=== PATIENT | female | born 1930 | race Caucasian/White ===

== ENCOUNTER 2017-11-18 21:50 | Inpatient (IN) | payer OTHER, MEDICAID ==
[2017-11-18] MEDS ORDERED: Haloperidol Lactate 5 mg/mL 1mL Vial IM STA ×2 (21:54→22:04)
[2017-11-18] MEDS ORDERED: Haloperidol Lactate 5 mg/mL 1mL Vial ONE ×2 (21:56→22:05)
[2017-11-18 22:35] LABS: % BASOPHILS 1.6 % (0.0-2.0); % EOSINOPHILS 3.7 % (0.0-5.0); % LYMPHOCYTES 16.6 % (20.0-50.0); % MONOCYTES 10.6 % (2.0-10.0); % NEUTROPHILS 67.5 % (40.0-80.0); BASOPHILE ABSOLUTE 0.2 Th/cumm (0-0.2); EOSINOPHILE ABSOLUTE 0.4 Th/cmm (0.1-0.4); HEMATOCRIT 36.3 % (41.0-60); HEMOGLOBIN 12.4 gm/dL (12-16); LYMPHOCYTE ABSOLUTE 1.9 Th/cmm (1.5-3.0); MEAN CELL VOLUME 94.2 fl (81-100); MEAN CORPUSCULAR HEMOGLOBIN 32.1 pg (27.0-31.0); MEAN PLATELET VOLUME 6.7 fl; MONOCYTE ABSOLUTE 1.2 Th/cmm (0.3-1.0); NEUTROPHILE ABSOLUTE 7.7 Th/cmm (1.8-8.0); PLATELET COUNT 377 Th/cmm (150-400); RED BLOOD COUNT 3.86 Mil/cmm (3.80-5.20); RED CELL DISTRIBUTION WIDTH 13.1 % (11.5-20.0); WHITE BLOOD COUNT 11.4 Th/cmm (4.8-10.8)
[2017-11-18 22:56] LABS: ALB/GLOB RATIO 1.5 (1.0-1.8); ALBUMIN 3.8 gm/dL (3.7-5.3); ALKALINE PHOSPHATASE 60 U/L (34-104); ANION GAP 12.7 (7.0-16.0); BILIRUBIN,TOTAL 0.7 mg/dL (0.3-1.0); BUN - UREA NITROGEN 15 mg/dL (7-25); CARBON DIOXIDE 23.4 mEq/L (21.0-31.0); CHLORIDE 104 mEq/L (98-107); CREATININE - SERUM 0.7 mg/dL (0.6-1.2); GLUCOSE 108 mg/dL (70-105); POTASSIUM SERUM 4.1 mEq/L (3.5-5.1); SGOT 18 U/L (13-39); SGPT/ALT 12 U/L (7-52); SODIUM SERUM 136 mEq/L (136-145); TOTAL PROTEIN,SERUM 6.4 gm/dL (6.0-8.3)
--- NOTE | 2017-11-18 23:28 | ED Physician Chart ---
ED Chief Complaint/HPI - Patient Information Date Seen:: 11/18/17 Time Seen:: 22:00 Chief Complaint:: COMBATIVE AND CONFUSED History of Present Illness:: THIS IS AN 87 YO FEMALE WHO IS COMBATIVE, HITTING THE STAFF AND IS UNCOOPERATIVE SENT HERE FOR A PSYCHO EVALUATION. SHE IS CHRONICALLY WITH PSYCHOSIS, WEAKNESS AND COPD. Allergies:: Allergies Allergy/AdvReac Type Severity Reaction Status Date / Time lorazepam [From Ativan] Allergy Verified 11/18/17 22:12 Sulfa (Sulfonamide Allergy Verified 11/18/17 22:12 Antibiotics) Vitals:: Vital Signs - 8 hr 11/18/17 21:55 Temp 97.6 F HR 77 RR 18 BP 152/76 O2 Sat % 95 Historian:: Family Member, Medical Records Review:: Nurse's Note Reviewed ED Review of Systems - Review of Systems General/Constitutional: No fever, No chills, No weight loss, No weakness, No diaphoresis, No edema, No loss of appetite, Other (THIS PATIENT IS UNABLE TO GIVE A REVIEW OF SYSTEMS) Skin: No skin lesions, No rash, No bruising Head: No headache, No light-headedness Eyes: No loss of vision, No pain, No diplopia ENT: No earache, No nasal drainage, No sore throat, No tinnitus Neck: No neck pain, No swelling, No thyromegaly, No stiffness, No mass noted Cardio Vascular: No chest pain, No palpitations, No PND, No orthopnea, No edema Pulmonary: No SOB, No cough, No sputum, No wheezing GI: No nausea, No vomiting, No diarrhea, No pain, No melena, No hematochezia, No constipation, No hematemesis G/U: No dysuria, No frequency, No hematuria Musculoskeletal: No bone or joint pain, No back pain, No muscle pain Endocrine: No polyuria, No polydipsia Psychiatric: No prior psych history, No depression, No anxiety, No suicidal ideation Hematopoietic: No bruising, No lymphadenopathy Allergic/Immuno: No urticaria, No angioedema Neurological: No syncope, No focal symptoms, No weakness, No paresthesia, No headache, No seizure, No dizziness, No confusion, No vertigo ED Past Medical History - Past Medical History Obtainable: Yes Past Medical History: CAD, Dyslipidemia, Arthritis, Dementia Family History: None Social History: Non Smoker, No Alcohol, No Drug Use, Care Facility Surgical History: other (DISLOCATION OF THE LEFT HIP) ED Physical Exam - Physical Examination General/Constitutional: Awake, Well-developed, well-nourished, Alert, No distress, GCS 15, Non-toxic appearing, Ambulatory Other Gen/Cons comments:: COMBATIVE AND UNABLE TO COOPERATE Head: Atraumatic Eyes: Lids, conjuctiva normal, PERRL, EOMI Skin: Nl inspection, No rash, No skin lesions, No ecchymosis, Well hydrated, No lymphadenopathy ENMT: External ears, nose nl, Nasal exam nl, Lips, teeth, gums nl Neck: Nontender, Full ROM w/o pain, No JVD, No nuchal rigidity, No bruit, No mass, No stridor Respiratory: Nl effort/Exclusion, Clear to Auscultation, No Wheeze/Rhonchi/Rales Cardio Vascular: RRR, No murmur, gallop, rubs, NL S1 S2 GI: No tenderness/rebounding/guarding, No organomegaly, No hernia, Normal BS's, Nondistended, No mass/bruits, No McBurney tenderness : No CVA tenderness Extremities: No tenderness or effusion, Full ROM, normal strength in all extremities, No edema, Normal digits & nails Neuro/Psych: Alert/oriented, DTR's symmetric, Normal sensory exam, Normal motor strength, Judgement/insight normal, Mood normal, Normal gait, No focal deficits Misc: Normal back, No paraspinal tenderness ED Labs/Radiology/EKG Results - Lab Results Results: Laboratory Tests 11/18/17 11/18/17 11/18/17 22:27 22:27 22:27 WBC 11.4 H RBC 3.86 Hgb 12.4 Hct 36.3 L MCV 94.2 MCH 32.1 H MCHC Differential 34.0 RDW 13.1 Plt Count 377 MPV 6.7 Neutrophils % 67.5 Lymphocytes % 16.6 L Monocytes % 10.6 H Eosinophils % 3.7 Basophils % 1.6 Sodium 136 Potassium 4.1 Chloride 104 Carbon Dioxide 23.4 Anion Gap 12.7 BUN 15 Creatinine 0.7 Est GFR ( Amer) TNP Est GFR (Non-Af Amer) TNP BUN/Creatinine Ratio 21.4 Glucose 108 H Calcium 10.0 Total Bilirubin 0.7 AST 18 ALT 12 Alkaline Phosphatase 60 Troponin I < 0.01 L Total Protein 6.4 Albumin 3.8 Globulin 2.6 Albumin/Globulin Ratio 1.5 - Radiology Results Results: CHEST X-RAY = NAD - EKG Interpretations EKG Time:: 01:17 Rate & Rhythm: RATE=72, NSR Covert: RIGHT AXIS ED Assessment - Assessment General Assessment: SEVERE PSYCHOSIS ED Septic Shock - . Is Septic Shock (SBP<90, OR Lactate>4 mmol\L) present?: No - <6hrs of presentation: Vital Signs: Vital Signs - 8 hr 11/18/17 21:55 Temp 97.6 F HR 77 RR 18 BP 152/76 O2 Sat % 95 ED Reassessment (Disposition) - Reassessment Reassessment Condition:: Unchanged - Diagnosis Diagnosis:: PSYCHOSIS ED Discharge Plan - Patient Disposition Admit/Discharge/Transfer: TRANSFER TO ACUTE HOSP Additional Instructions: THIS PATIENT WILL BE CARED FOR BY DR DALY STARTING AT 0700 HRS AND AWAITS A BED AT A [facility]
--- NOTE | 2017-11-19 09:35 | Diagnostic Imaging Report ---
Chest x-ray single view History: Chest pain Comparison: None The heart size is normal. No focal pulmonary parenchymal processes. No hilar or mediastinal abnormalities. Aortic arch calcified. Degenerative changes shoulder joint appreciated Impression: No acute abnormalities
[2017-11-20] MEDS ORDERED: APAP/Codeine 300 mg/30 mg Tab PO STA (13:17)
[2017-11-20] MEDS ORDERED: APAP/Codeine 300 mg/30 mg Tab ONE (13:25)
[2017-11-20 15:49] LABS: URINE MICROSCOPIC INDICATED? YES; URINE SOURCE CLEAN C
[2017-11-20 16:08] LABS: URINE BILIRUBIN SMALL (NEGATIVE); URINE BLOOD NEGATIVE (NEGATIVE); URINE GLUCOSE (UA) NEGATIVE (NEGATIVE); URINE KETONE 15 mg/dL (NEGATIVE); URINE NITRATE NEGATIVE (NEGATIVE); URINE PH 6.5 (4.6 - 8.0); URINE PROTEIN NEGATIVE (NEGATIVE); URINE UROBILINOGEN 0.2 E.U./dL (0.2 - 1.0)
[2017-11-20 16:14] LABS: URINE CLARITY CLEAR (CLEAR); URINE COLOR YELLOW; URINE LEUKOCYTE ESTERASE TRACE (NEGATIVE)
[2017-11-20 16:16] LABS: URINE BACTERIA NONE SEEN /hpf (NONE SEEN); URINE EPITHELIAL CELLS FEW /lpf (FEW); URINE RBC 0-2 /hpf (0-5)
[2017-11-21] MEDS ORDERED: APAP/Codeine 300 mg/30 mg Tab PO STA ×2 (09:17→15:28)
[2017-11-21] MEDS ORDERED: APAP/Codeine 300 mg/30 mg Tab ONE ×2 (09:21→15:47)
--- NOTE | 2017-11-21 18:18 | Psychosocial Evaluation ---
DATE OF SERVICE: 11/21/2017 REASON FOR CONSULTATION: Psych eval. HISTORY OF PRESENT ILLNESS: An 87-year-old female, combative, hitting the staff, uncooperative, came in on a hold for danger to self, danger to others. Daughter is at the bedside. The patient __knows__ her name. She does not know where she is. She is not quite sure about the year. She does not know the day of the week. She does know the month. PAST PSYCHIATRIC HISTORY: Dementia. FAMILY HISTORY: Noncontributory. SOCIAL HISTORY: The patient is residing in [facility], had been at [facility] for rehabilitation. Currently . She has two children, one of them is ; the other one is here, daughter. The patient is smoking cigarettes still. No drugs, no alcohol. MEDICATIONS: Noted. PAST MEDICAL HISTORY: Noted. MENTAL STATUS EXAMINATION: Stated age. Fair eye contact. Speech is within normal limits. Poorly oriented, confused, and disoriented. No overt SI or HI. No overt psychotic symptoms. Poor insight, poor judgment, and poor impulse control. The patient becomes unruly at one point, daughter has to calm her down. PROVISIONAL DIAGNOSIS: 1. Dementia. 2. Dementia with behavioral disturbances. 3. Psychosis, unspecified. 4. Mood, unspecified. 5. Anxiety, unspecified. MEDICAL: Please see full H and P. RECOMMENDATIONS AND PLAN: No confirmation of placement at this time. The patient currently cannot care for herself. I will initiate a 14-day hold. Discussed with daughter and staff. [facility]# [id number] [facility]
[2017-11-21 20:11] VITALS: BP 158/91
[2017-11-21] MEDS ORDERED: guaiFENesin 200 MG/10 ML UDC PO PRN (22:38)
[2017-11-21] MEDS ORDERED: Fleet Enema 135 mL RC PRN (22:38)
[2017-11-21] MEDS ORDERED: Magnesium Hydroxide (MOM) 30 mL UDC PO PRN (22:38)
[2017-11-21] MEDS ORDERED: Albuterol Nebulizer 2.5mg/3mL HHN PRN (22:38)
[2017-11-21] MEDS ORDERED: Polyvinyl Alcohol Ophth Soln 15 mL Bottle EACH EYE PRN (22:55)
[2017-11-22] MEDS: APAP/Codeine 300 mg/30 mg Tab PO PRN ×3 (05:40→18:18)
[2017-11-22] MEDS: Potassium Chloride 10 mEq ER Tab PO SCH (08:59)
[2017-11-22] MEDS: Aspirin 81mg Chewable Tab PO SCH (08:59)
[2017-11-22] MEDS: Multivitamin w/ Minerals Tab PO SCH (08:59)
[2017-11-22] MEDS ORDERED: Non-Formulary Item 1 EA (Fluticasone/Salmeterol [Advair 100-50 Diskus] 1 PUFF) IH SCH (09:00)
[2017-11-22] MEDS: Lidocaine 5% Patch TD SCH (09:15)
[2017-11-22] MEDS: Polyvinyl Alcohol Ophth Soln 15 mL Bottle EACH EYE SCH ×4 (09:15→21:47)
--- NOTE | 2017-11-22 09:51 | History and Physical ---
History of Present Illness - HPI Chief Complaint: Increased in agitation HPI: This is a permanent resident of a intermediate. She was send to ER due to increased in agitation. Vital Signs: Last Vital Signs Temp 97.0 F 11/22/17 05:51 Pulse 85 11/22/17 08:59 Resp 20 11/22/17 05:51 BP 126/72 11/22/17 08:59 Pulse Ox 94 11/22/17 05:51 Past Medical History Cardiovascular: Report: CAD, HTN Pulmonary: Report: COPD [employer]: Report: Dementia GI: Report: No Pertinent Hx Psych: Report: Psychosis Musculoskeletal: Report: Weakness Rheumatologic: Report: No pertinent Hx Infectious Disease: Report: No Pertinent Hx Renal/: Report: No Pertinent Hx Endocrine: Report: Other (Dyslipemia) Dermatology: Report: No Pertinent Hx - Past Surgical History Past Surgical History: No pertinent Hx, Other (Dislocation of left hip repair) Family Medical History - Family Member Daughter Ethnicity: Non- Living Status: Still Living Social History Smoke: No Alcohol: None Drugs: None Lives: Custodial Domestic Violence: Negative - Medications Home Medications: Home Medication Medication Instructions Recorded Type Acetaminophen 650 mg PO Q4HR PRN 11/18/17 History Acetaminophen [Acetaminophen Extra 500 mg PO Q12HR PRN MDD 3000 mg 11/18/17 History Strength] Acetaminophen with Codeine 1 each PO Q6HR PRN 11/18/17 History [Acetaminophen-Cod #4 Tablet] Acetaminophen with Codeine 1 tab PO DAILY PRN 11/18/17 History [Acetaminophen-Cod #4 Tablet] Albuterol Nebulizer 2.5mg/3mL 2.5 mg IH Q4HR PRN 11/18/17 History [Albuterol Neb UD*] Aspirin 81 mg PO DAILY 11/18/17 History Bisacodyl [Dulcolax 10 Mg Supp] 10 mg RC DAILY PRN 11/18/17 History Buspirone HCl [Buspirone HCl*] 15 mg PO TID 11/18/17 History Carboxymethylcellulose Sodium 1 drop EACH EYE DAILY PRN 11/18/17 History [Refresh Liquigel 30 ml] Carboxymethylcellulose Sodium 1 drop EACH EYE QID 11/18/17 History [Refresh Tears] Docusate Sodium [Colace] 100 mg PO BID 11/18/17 History Duloxetine HCl 40 mg PO DAILY 11/18/17 History Famotidine [Pepcid*] 40 mg PO DAILY 11/18/17 History Fleet Enema [Fleet Enema] 135 ml RC DAILY PRN 11/18/17 History Fluticasone/Salmeterol [Advair 1 puff IH DAILY 11/18/17 History 100-50 Diskus] Guaifenesin [Adult Tussin Chest 100 mg PO Q4HR PRN 11/18/17 History Congestion] Latanoprost 0.005% Ophth Soln 1 drop OP DAILY 11/18/17 History [Xalatan 0.005% Ophth Soln] Lidocaine 5% Patch [Lidoderm 5% 1 patch TP DAILY 11/18/17 History Patch] Lovastatin 20 mg PO HS 11/18/17 History Magnesium Hydroxide [Milk of 30 ml PO DAILY PRN 11/18/17 History Magnesia] Metoprolol Tartrate [Lopressor] 25 mg PO BID 11/18/17 History Multivit-Min/Iron Fum/Folic AC 1 tab PO DAILY 11/18/17 History [Nature's Blend Multi Vitamin and Minerals] Potassium Chloride 10 meq PO DAILY 11/18/17 History Sennosides A and B [Senna] 2 tab PO DAILY 11/18/17 History - Allergies Allergies/Adverse Reactions: Allergies Allergy/AdvReac Type Severity Reaction Status Date / Time lorazepam [From Ativan] Allergy Verified 11/18/17 22:12 Sulfa (Sulfonamide Allergy Verified 11/18/17 22:12 Antibiotics) Review of Systems - Review of Systems Constitutional: Report: No Significant Eyes: Report: No Significant ENT: Report: No Significant Respiratory: Report: No Significant Cardiovascular: Report: No Significant Gastrointestinal: Report: No Significant Genitourinary: Report: No Significant Musculoskeletal: Report: No Significant Skin: Report: No Significant Neurological: Report: Weakness, Confusion Physical Exam - Physical Exam HEENT: Report: Ears Nose Throat within normal limits Neck: Report: Within normal limits Cardiovascular Systems: Report: Regular, Rate and Rhythm Respiratory: Report: Breath Sounds are within normal limits Abdomen: Report: Non-tender to palpation Back: Report: Inspection of back is within normal limits. Extremities: Report: Non-tender to palpation. Skin: Report: Color of skin is within normal limits Neuro/Psych: Report: Disoriented to name time or place - Assessment Assessment: patient is awake, alert, confused, agitated at moment. Dx: Increased in agitation, Psychosis, Dementia, HTN, CAD, COPD Dyslipemia. - Plan Plan: Patient is follow by Psychiatry, she is continue with SNF meds. Will continue to monitor.
--- NOTE | 2017-11-22 16:20 | Progress Notes ---
DATE: 11/22/2017 SUBJECTIVE: The patient was seen yesterday for a psych eval. She was combative, hitting, uncooperative. On [id number], the patient remains disoriented, does not know where she is, does not know why she is here, telling me that my questions are not important and refusing to answer some questions. The patient trying to get up, unruly, difficulty with directions, sleeping fairly well. ASSESSMENT: The patient remains symptomatic disoriented, confused, unruly, unable to go back to [facility]. We will need to find alternative placement. Daughter were involved. Continue Cymbalta. We will consider adding Namenda to her regimen. JOB# [id number]
[2017-11-23] MEDS: Acetaminophen 500 MG TAB PO PRN (04:58)
[2017-11-23] MEDS: Aspirin 81mg Chewable Tab PO SCH (09:54)
[2017-11-23] MEDS: Multivitamin w/ Minerals Tab PO SCH (09:54)
[2017-11-23] MEDS: Potassium Chloride 10 mEq ER Tab PO SCH (09:54)
[2017-11-23 11:02] LABS: CHOLESTEROL 149 mg/dL (<200); HDL -HIGH DENSITY LIPOPROTEIN 44 mg/dL (23-92); TRIGLYCERIDES 106 mg/dL (<150)
--- NOTE | 2017-11-23 13:38 | General Progress Note ---
Subjective - Review of Systems Service Date: 11/23/17 Subjective: Incoherent Objective - Results Result Diagrams: 11/18/17 22:11/18/17 22: Recent Labs: Laboratory Last Values WBC 11.4 Th/cmm (4.8-10.8) H 11/18/17 22: RBC 3.86 Mil/cmm (3.80-5.20) 11/18/17 22: Hgb 12.4 gm/dL (12-16) 11/18/17: Hct 36.3 % (41.0-60) L 11/18/17: MCV 94.2 fl (81-100) 11/18/17 22: MCH 32.1 pg (27.0-31.0) H 11/18/17: MCHC Differential 34.0 pg (28.0-36.0) 11/18/17: RDW 13.1 % (11.5-20.0) 11/18/17: Plt Count 377 Th/cmm (150-400) 11/18/17 22: MPV 6.7 fl 11/18/17 22: Neutrophils % 67.5 % (40.0-80.0) 11/18/17: Lymphocytes % 16.6 % (20.0-50.0) L 11/18/17: Monocytes % 10.6 % (2.0-10.0) H 11/18/17: Eosinophils % 3.7 % (0.0-5.0) 11/18/17: Basophils % 1.6 % (0.0-2.0) 11/18/17: Sodium 136 mEq/L (136-145) 11/18/17: Potassium 4.1 mEq/L (3.5-5.1) 11/18/17: Chloride 104 mEq/L (98-107) 11/18/17: Carbon Dioxide 23.4 mEq/L (21.0-31.0) 11/18/17: Anion Gap 12.7 (7.0-16.0) 11/18/17: BUN 15 mg/dL (7-25) 11/18/17: Creatinine 0.7 mg/dL (0.6-1.2) 11/18/17 22: Est GFR ( Amer) TNP 11/18/17 22: Est GFR (Non-Af Amer) TNP 11/18/17 22: BUN/Creatinine Ratio 21.4 11/18/17 22: Glucose 108 mg/dL (70-105) H 11/18/17 22: Calcium 10.0 mg/dL (8.6-10.3) 11/18/17: Total Bilirubin 0.7 mg/dL (0.3-1.0) 11/18/17: AST 18 U/L (13-39) 11/18/17: ALT 12 U/L (7-52) 11/18/17: Alkaline Phosphatase 60 U/L (34-104) 11/18/17: Troponin I < 0.01 ng/mL (0.01-0.05) L 11/18/17: Total Protein 6.4 gm/dL (6.0-8.3) 11/18/17: Albumin 3.8 gm/dL (3.7-5.3) 11/18/17: Globulin 2.6 gm/dL 11/18/17: Albumin/Globulin Ratio 1.5 (1.0-1.8) 11/18/17 22: Triglycerides 106 mg/dL (<150) 11/23/17 10:30 Cholesterol 149 mg/dL (<200) 11/23/17 10:30 LDL Cholesterol Direct 94 mg/dL (75-193) 11/23/17 10:30 HDL Cholesterol 44 mg/dL (23-92) 11/23/17 10:30 TSH 2.17 uIU/ml (0.34-5.60) 11/18/17 22: Urine Source CLEAN C 11/20/17 15:00 Urine Color YELLOW 11/20/17 15:00 Urine Clarity CLEAR (CLEAR) 11/20/17 15:00 Urine pH 6.5 (4.6 - 8.0) 11/20/17 15:00 Ur Specific [place] 1.020 (1.005-1.030) 11/20/17 15:00 Urine Protein NEGATIVE mg/dL (NEGATIVE) 11/20/17 15:00 Urine Glucose (UA) NEGATIVE mg/dL (NEGATIVE) 11/20/17 15:00 Urine Ketones 15 mg/dL (NEGATIVE) H 11/20/17 15:00 Urine Blood NEGATIVE (NEGATIVE) 11/20/17 15:00 Urine Nitrate NEGATIVE (NEGATIVE) 11/20/17 15:00 Urine Bilirubin SMALL (NEGATIVE) H 11/20/17 15:00 Urine Urobilinogen 0.2 E.U./dL (0.2 - 1.0) 11/20/17 15:00 Ur Leukocyte Esterase TRACE (NEGATIVE) H 11/20/17 15:00 Urine RBC 0-2 /hpf (0-5) 11/20/17 15:00 Urine WBC 2-5 /hpf (0-5) 11/20/17 15:00 Ur Epithelial Cells FEW /lpf (FEW) 11/20/17 15:00 Urine Bacteria NONE SEEN /hpf (NONE SEEN) 11/20/17 15:00 - Physical Exam Vitals and I&O: Vital Signs Temp 98.3 F 11/23/17 06:08 Pulse 75 11/23/17 09:54 Resp 18 11/23/17 06:08 BP 147/72 11/23/17 09:54 Pulse Ox 95 11/23/17 06:08 Intake & Output 11/22/17 11/23/17 11/23/17 18:59 06:59 18:59 Intake Total 900 360 Balance 900 360 Intake: Oral 900 360 Other: # Voids 4 2 # Bowel Movements 1 0 Active Medications: Current Medications Acetaminophen (Tylenol) 650 mg PO Q4HR PRN PRN Reason: TEMP >100F Stop: 01/20/18 22:37 Acetaminophen (Tylenol Extra Strength) 500 mg PO Q12HR PRN PRN Reason: Pain (Mild) Stop: 01/20/18 22:37 Last Admin: 11/23/17 04:58 Dose: 500 mg Acetaminophen/Codeine Phosphate (Tylenol W/Codeine #3) 1 tab PO Q6H PRN PRN Reason: Pain (Moderate) Stop: 01/20/18 22:53 Last Admin: 11/22/17 18:18 Dose: 1 tab Albuterol Sulfate (Albuterol 2.5mg/3ml Neb Ud) 2.5 mg HHN Q4HR PRN PRN Reason: Shortness of Breath or Wheeze Stop: 01/20/18 22:37 Artificial Tears (Artificial Tears Ophth Soln) 1 drop EACH EYE QID RADHA Stop: 01/21/18 08:59 Last Admin: 11/22/17 21:47 Dose: 1 drop Artificial Tears (Artificial Tears Ophth Soln) 1 drop EACH EYE DAILY PRN PRN Reason: Dry Eye Stop: 01/20/18 22:54 Aspirin (Aspirin Chewable) 81 mg PO DAILY RADHA Stop: 01/21/18 08:59 Last Admin: 11/23/17 09:54 Dose: 81 mg Bisacodyl (Dulcolax 10 Mg Supp) 10 mg RC DAILY PRN PRN Reason: Constipation Stop: 01/20/18 22:37 Buspirone HCl (Buspar) 15 mg PO TID [facility] Stop: 01/21/18 08:59 Last Admin: 11/23/17 09:54 Dose: 15 mg Docusate Sodium (Colace) 100 mg PO BID [facility] Stop: 01/21/18 08:59 Last Admin: 11/23/17 09:56 Dose: 100 mg Duloxetine HCl (Cymbalta) 40 mg PO DAILY [facility] Stop: 01/21/18 08:59 Famotidine (Pepcid) 40 mg PO DAILY [facility] Stop: 01/21/18 08:59 Last Admin: 11/22/17 08:57 Dose: 40 mg Guaifenesin (Robitussin) 100 mg PO Q4HR PRN PRN Reason: Cough Stop: 01/20/18 22:37 Latanoprost (Xalatan 0.005% Ophth Soln) 1 drop EACH EYE HS [facility] Stop: 01/21/18 20:59 Last Admin: 11/22/17 21:47 Dose: 1 drop Lidocaine (Lidoderm 5% Patch) 1 patch TD DAILY RADHA Stop: 01/21/18 08:59 Last Admin: 11/22/17 09:15 Dose: 1 patch Magnesium Hydroxide (Milk Of Magnesia) 30 ml PO DAILY PRN PRN Reason: Constipation Stop: 01/20/18 22:37 Memantine (Namenda) 5 mg PO DAILY RADHA Stop: 01/22/18 08:59 Last Admin: 11/23/17 09:54 Dose: 5 mg Metoprolol Tartrate (Lopressor) 25 mg PO BID RADHA Stop: 01/21/18 08:59 Last Admin: 11/23/17 09:54 Dose: 25 mg Miscellaneous (Fluticasone/Salmeterol [Advair 100-50 Diskus]) 1 puff IH DAILY [facility] Stop: 01/21/18 08:59 Potassium Chloride (Klor-Con) 10 meq PO DAILY RADHA Stop: 01/21/18 08:59 Last Admin: 11/23/17 09:54 Dose: 10 meq Senna (Senna) 17.2 mg PO DAILY RADHA Stop: 01/21/18 08:59 Last Admin: 11/23/17 09:54 Dose: 17.2 mg Simvastatin (Zocor) 10 mg PO HS [facility] Stop: 01/21/18 20:59 Last Admin: 11/22/17 21:47 Dose: 10 mg Sodium Phosphate (Fleet Enema) 135 ml RC DAILY PRN PRN Reason: Constipation Stop: 01/20/18 22:37 General: Alert, Other (Confused) HEENT: Atraumatic, PERRLA Neck: Supple Cardiovascular: Regular rate Lungs: Clear to auscultation Abdomen: Bowel sounds, Soft Extremities: Other (No edema) Neurological: Other (Non ambulatory) Skin: Other (Warm and dry) Psych/Mental Status: Other (Confused) Assessment/Plan - Assessment Assessment: patient is awake, alert, confused, agitated at moment. Dx: Increased in agitation, Psychosis, Dementia, HTN, CAD, COPD Dyslipemia. - Plan Plan: Patient is follow by Psychiatry, she is continue with SNF meds. Will continue to monitor.
[2017-11-23] MEDS: Lidocaine 5% Patch TD SCH (16:19)
[2017-11-23] MEDS: Polyvinyl Alcohol Ophth Soln 15 mL Bottle EACH EYE SCH ×3 (16:21→20:48)
--- NOTE | 2017-11-23 18:15 | Progress Notes ---
DATE: 11/23/2017 The patient seen, chart reviewed, discussed with staff. The patient was seen today, 11/23/2017. The patient seems somewhat calmer, but still remains pretty impulsive, unpredictable, easily irritable, easily agitated, very confused. On exam, she is sleeping, however she is arousable but does not want to talk to me, disoriented on exam. Medications were noted. ASSESSMENT: The patient is calm at this time, but staff noting she remains easily irritable, easily triggered, not safe for a lower level of care given her ongoing behaviors, still highly impulsive. PLAN: We will continue to monitor. We will continue to adjust and titrate medications. [facility]# [id number]
[2017-11-23] MEDS: APAP/Codeine 300 mg/30 mg Tab PO PRN (18:46)
--- NOTE | 2017-11-24 09:02 | General Progress Note ---
Subjective - Review of Systems Service Date: 11/24/17 Subjective: Incoherent Objective - Results Result Diagrams: 11/18/17 22:11/18/17 22: Recent Labs: Laboratory Last Values WBC 11.4 Th/cmm (4.8-10.8) H 11/18/17 22: RBC 3.86 Mil/cmm (3.80-5.20) 11/18/17 22: Hgb 12.4 gm/dL (12-16) 11/18/17: Hct 36.3 % (41.0-60) L 11/18/17: MCV 94.2 fl (81-100) 11/18/17: MCH 32.1 pg (27.0-31.0) H 11/18/17: MCHC Differential 34.0 pg (28.0-36.0) 11/18/17: RDW 13.1 % (11.5-20.0) 11/18/17: Plt Count 377 Th/cmm (150-400) 11/18/17 22: MPV 6.7 fl 11/18/17: Neutrophils % 67.5 % (40.0-80.0) 11/18/17: Lymphocytes % 16.6 % (20.0-50.0) L 11/18/17: Monocytes % 10.6 % (2.0-10.0) H 11/18/17: Eosinophils % 3.7 % (0.0-5.0) 11/18/17: Basophils % 1.6 % (0.0-2.0) 11/18/17: Sodium 136 mEq/L (136-145) 11/18/17: Potassium 4.1 mEq/L (3.5-5.1) 11/18/17: Chloride 104 mEq/L (98-107) 11/18/17: Carbon Dioxide 23.4 mEq/L (21.0-31.0) 11/18/17: Anion Gap 12.7 (7.0-16.0) 11/18/17: BUN 15 mg/dL (7-25) 11/18/17: Creatinine 0.7 mg/dL (0.6-1.2) 11/18/17 22: Est GFR ( Amer) TNP 11/18/17 22: Est GFR (Non-Af Amer) TNP 11/18/17 22: BUN/Creatinine Ratio 21.4 11/18/17 22: Glucose 108 mg/dL (70-105) H 11/18/17 22: Calcium 10.0 mg/dL (8.6-10.3) 11/18/17: Total Bilirubin 0.7 mg/dL (0.3-1.0) 11/18/17: AST 18 U/L (13-39) 11/18/17: ALT 12 U/L (7-52) 11/18/17: Alkaline Phosphatase 60 U/L (34-104) 11/18/17: Troponin I < 0.01 ng/mL (0.01-0.05) L 11/18/17: Total Protein 6.4 gm/dL (6.0-8.3) 11/18/17: Albumin 3.8 gm/dL (3.7-5.3) 11/18/17: Globulin 2.6 gm/dL 11/18/17: Albumin/Globulin Ratio 1.5 (1.0-1.8) 11/18/17 22: Triglycerides 106 mg/dL (<150) 11/23/17 10:30 Cholesterol 149 mg/dL (<200) 11/23/17 10:30 LDL Cholesterol Direct 94 mg/dL (75-193) 11/23/17 10:30 HDL Cholesterol 44 mg/dL (23-92) 11/23/17 10:30 TSH 2.17 uIU/ml (0.34-5.60) 11/18/17 22: Urine Source CLEAN C 11/20/17 15:00 Urine Color YELLOW 11/20/17 15:00 Urine Clarity CLEAR (CLEAR) 11/20/17 15:00 Urine pH 6.5 (4.6 - 8.0) 11/20/17 15:00 Ur Specific [place] 1.020 (1.005-1.030) 11/20/17 15:00 Urine Protein NEGATIVE mg/dL (NEGATIVE) 11/20/17 15:00 Urine Glucose (UA) NEGATIVE mg/dL (NEGATIVE) 11/20/17 15:00 Urine Ketones 15 mg/dL (NEGATIVE) H 11/20/17 15:00 Urine Blood NEGATIVE (NEGATIVE) 11/20/17 15:00 Urine Nitrate NEGATIVE (NEGATIVE) 11/20/17 15:00 Urine Bilirubin SMALL (NEGATIVE) H 11/20/17 15:00 Urine Urobilinogen 0.2 E.U./dL (0.2 - 1.0) 11/20/17 15:00 Ur Leukocyte Esterase TRACE (NEGATIVE) H 11/20/17 15:00 Urine RBC 0-2 /hpf (0-5) 11/20/17 15:00 Urine WBC 2-5 /hpf (0-5) 11/20/17 15:00 Ur Epithelial Cells FEW /lpf (FEW) 11/20/17 15:00 Urine Bacteria NONE SEEN /hpf (NONE SEEN) 11/20/17 15:00 - Physical Exam Vitals and I&O: Vital Signs Temp 98.5 F 11/23/17 15:37 Pulse 99 11/23/17 20:00 Resp 18 11/23/17 20:00 BP 163/99 11/23/17 15:37 Pulse Ox 93 11/23/17 20:00 Intake & Output 11/23/17 11/24/17 11/24/17 18:59 06:59 18:59 Intake Total 900 120 Balance 900 120 Intake: Oral 900 120 Other: # Voids 3 3 Active Medications: Current Medications Acetaminophen (Tylenol) 650 mg PO Q4HR PRN PRN Reason: TEMP >100F Stop: 01/20/18 22:37 Acetaminophen (Tylenol Extra Strength) 500 mg PO Q12HR PRN PRN Reason: Pain (Mild) Stop: 01/20/18 22:37 Last Admin: 11/23/17 04:58 Dose: 500 mg Acetaminophen/Codeine Phosphate (Tylenol W/Codeine #3) 1 tab PO Q6H PRN PRN Reason: Pain (Moderate) Stop: 01/20/18 22:53 Last Admin: 11/23/17 18:46 Dose: 1 tab Albuterol Sulfate (Albuterol 2.5mg/3ml Neb Ud) 2.5 mg HHN Q4HR PRN PRN Reason: Shortness of Breath or Wheeze Stop: 01/20/18 22:37 Artificial Tears (Artificial Tears Ophth Soln) 1 drop EACH EYE QID [facility] Stop: 01/21/18 08:59 Last Admin: 11/23/17 20:48 Dose: 1 drop Artificial Tears (Artificial Tears Ophth Soln) 1 drop EACH EYE DAILY PRN PRN Reason: Dry Eye Stop: 01/20/18 22:54 Aspirin (Aspirin Chewable) 81 mg PO DAILY [facility] Stop: 01/21/18 08:59 Last Admin: 11/23/17 09:54 Dose: 81 mg Bisacodyl (Dulcolax 10 Mg Supp) 10 mg RC DAILY PRN PRN Reason: Constipation Stop: 01/20/18 22:37 Buspirone HCl (Buspar) 15 mg PO TID [facility] Stop: 01/21/18 08:59 Last Admin: 11/23/17 20:47 Dose: 15 mg Docusate Sodium (Colace) 100 mg PO BID [facility] Stop: 01/21/18 08:59 Last Admin: 11/23/17 16:22 Dose: Not Given Duloxetine HCl (Cymbalta) 30 mg PO DAILY [facility] Stop: 01/21/18 08:59 Famotidine (Pepcid) 40 mg PO DAILY [facility] Stop: 01/21/18 08:59 Last Admin: 11/23/17 16:19 Dose: Not Given Guaifenesin (Robitussin) 100 mg PO Q4HR PRN PRN Reason: Cough Stop: 01/20/18 22:37 Latanoprost (Xalatan 0.005% Ophth Soln) 1 drop EACH EYE HS [facility] Stop: 01/21/18 20:59 Last Admin: 11/23/17 20:47 Dose: 1 drop Lidocaine (Lidoderm 5% Patch) 1 patch TD DAILY [facility] Stop: 01/21/18 08:59 Last Admin: 11/23/17 16:19 Dose: Not Given Magnesium Hydroxide (Milk Of Magnesia) 30 ml PO DAILY PRN PRN Reason: Constipation Stop: 01/20/18 22:37 Memantine (Namenda) 5 mg PO DAILY [facility] Stop: 01/22/18 08:59 Last Admin: 11/23/17 09:54 Dose: 5 mg Metoprolol Tartrate (Lopressor) 25 mg PO BID [facility] Stop: 01/21/18 08:59 Last Admin: 11/23/17 16:22 Dose: Not Given Potassium Chloride (Klor-Con) 10 meq PO DAILY [facility] Stop: 01/21/18 08:59 Last Admin: 11/23/17 09:54 Dose: 10 meq Senna (Senna) 17.2 mg PO DAILY [facility] Stop: 01/21/18 08:59 Last Admin: 11/23/17 09:54 Dose: 17.2 mg Simvastatin (Zocor) 10 mg PO HS [facility] Stop: 01/21/18 20:59 Last Admin: 11/23/17 20:48 Dose: 10 mg Sodium Phosphate (Fleet Enema) 135 ml RC DAILY PRN PRN Reason: Constipation Stop: 01/20/18 22:37 General: Alert, Other (Confused) HEENT: Atraumatic, PERRLA Neck: Supple Cardiovascular: Regular rate Lungs: Clear to auscultation Abdomen: Bowel sounds, Soft Extremities: Other (No edema) Neurological: Other (Non ambulatory) Skin: Other (Warm and dry) Psych/Mental Status: Other (Confused) Assessment/Plan - Assessment Assessment: patient is awake, alert, confused, agitated at moment. Dx: Increased in agitation, Psychosis, Dementia, HTN, CAD, COPD Dyslipemia. - Plan Plan: Patient is follow by Psychiatry, she is continue with SNF meds. Will continue to monitor.
[2017-11-24] MEDS: Potassium Chloride 10 mEq ER Tab PO SCH (11:05)
[2017-11-24] MEDS: Multivitamin w/ Minerals Tab PO SCH (11:05)
[2017-11-24] MEDS: Aspirin 81mg Chewable Tab PO SCH (11:06)
[2017-11-24] MEDS: Lidocaine 5% Patch TD SCH (11:12)
[2017-11-24] MEDS: Polyvinyl Alcohol Ophth Soln 15 mL Bottle EACH EYE SCH ×4 (11:13→21:10)
[2017-11-24] MEDS: APAP/Codeine 300 mg/30 mg Tab PO PRN (11:13)
--- NOTE | 2017-11-24 21:00 | Progress Notes ---
DATE: 11/24/2017 An 87-year-old female, still combative, at times unruly, trying to hit staff at times, not talking to me, irritable, disoriented, confused, poorly oriented, mostly in bed, isolating. Medications were noted. ASSESSMENT: The patient remains unruly, still highly impulsive, unpredictable, concerns for safety, currently on a 14-day hold. Medications were reviewed. PLAN: We will continue to monitor the patient on medications to target mood and anxiety, also dementia. We will monitor and follow up. We will contact daughter today. JOB# [id number]
[2017-11-25] MEDS: Multivitamin w/ Minerals Tab PO SCH (08:46)
[2017-11-25] MEDS: Aspirin 81mg Chewable Tab PO SCH (08:49)
[2017-11-25] MEDS: Potassium Chloride 10 mEq ER Tab PO SCH (08:50)
--- NOTE | 2017-11-25 08:55 | General Progress Note ---
Subjective - Review of Systems Service Date: 11/25/17 Subjective: Incoherent Objective - Results Result Diagrams: 11/18/17 22:11/18/17 22: Recent Labs: Laboratory Last Values WBC 11.4 Th/cmm (4.8-10.8) H 11/18/17 22: RBC 3.86 Mil/cmm (3.80-5.20) 11/18/17 22: Hgb 12.4 gm/dL (12-16) 11/18/17: Hct 36.3 % (41.0-60) L 11/18/17: MCV 94.2 fl (81-100) 11/18/17: MCH 32.1 pg (27.0-31.0) H 11/18/17: MCHC Differential 34.0 pg (28.0-36.0) 11/18/17: RDW 13.1 % (11.5-20.0) 11/18/17: Plt Count 377 Th/cmm (150-400) 11/18/17 22: MPV 6.7 fl 11/18/17: Neutrophils % 67.5 % (40.0-80.0) 11/18/17: Lymphocytes % 16.6 % (20.0-50.0) L 11/18/17: Monocytes % 10.6 % (2.0-10.0) H 11/18/17: Eosinophils % 3.7 % (0.0-5.0) 11/18/17: Basophils % 1.6 % (0.0-2.0) 11/18/17: Sodium 136 mEq/L (136-145) 11/18/17: Potassium 4.1 mEq/L (3.5-5.1) 11/18/17: Chloride 104 mEq/L (98-107) 11/18/17: Carbon Dioxide 23.4 mEq/L (21.0-31.0) 11/18/17: Anion Gap 12.7 (7.0-16.0) 11/18/17: BUN 15 mg/dL (7-25) 11/18/17: Creatinine 0.7 mg/dL (0.6-1.2) 11/18/17 22: Est GFR ( Amer) TNP 11/18/17 22: Est GFR (Non-Af Amer) TNP 11/18/17 22: BUN/Creatinine Ratio 21.4 11/18/17 22: Glucose 108 mg/dL (70-105) H 11/18/17 22: Calcium 10.0 mg/dL (8.6-10.3) 11/18/17: Total Bilirubin 0.7 mg/dL (0.3-1.0) 11/18/17: AST 18 U/L (13-39) 11/18/17: ALT 12 U/L (7-52) 11/18/17: Alkaline Phosphatase 60 U/L (34-104) 11/18/17: Troponin I < 0.01 ng/mL (0.01-0.05) L 11/18/17: Total Protein 6.4 gm/dL (6.0-8.3) 11/18/17: Albumin 3.8 gm/dL (3.7-5.3) 11/18/17: Globulin 2.6 gm/dL 11/18/17: Albumin/Globulin Ratio 1.5 (1.0-1.8) 11/18/17 22: Triglycerides 106 mg/dL (<150) 11/23/17 10:30 Cholesterol 149 mg/dL (<200) 11/23/17 10:30 LDL Cholesterol Direct 94 mg/dL (75-193) 11/23/17 10:30 HDL Cholesterol 44 mg/dL (23-92) 11/23/17 10:30 TSH 2.17 uIU/ml (0.34-5.60) 11/18/17 22: Urine Source CLEAN C 11/20/17 15:00 Urine Color YELLOW 11/20/17 15:00 Urine Clarity CLEAR (CLEAR) 11/20/17 15:00 Urine pH 6.5 (4.6 - 8.0) 11/20/17 15:00 Ur Specific [place] 1.020 (1.005-1.030) 11/20/17 15:00 Urine Protein NEGATIVE mg/dL (NEGATIVE) 11/20/17 15:00 Urine Glucose (UA) NEGATIVE mg/dL (NEGATIVE) 11/20/17 15:00 Urine Ketones 15 mg/dL (NEGATIVE) H 11/20/17 15:00 Urine Blood NEGATIVE (NEGATIVE) 11/20/17 15:00 Urine Nitrate NEGATIVE (NEGATIVE) 11/20/17 15:00 Urine Bilirubin SMALL (NEGATIVE) H 11/20/17 15:00 Urine Urobilinogen 0.2 E.U./dL (0.2 - 1.0) 11/20/17 15:00 Ur Leukocyte Esterase TRACE (NEGATIVE) H 11/20/17 15:00 Urine RBC 0-2 /hpf (0-5) 11/20/17 15:00 Urine WBC 2-5 /hpf (0-5) 11/20/17 15:00 Ur Epithelial Cells FEW /lpf (FEW) 11/20/17 15:00 Urine Bacteria NONE SEEN /hpf (NONE SEEN) 11/20/17 15:00 - Physical Exam Vitals and I&O: Vital Signs Temp 98.2 F 11/24/17 21:02 Pulse 74 11/25/17 08:47 Resp 20 11/25/17 08:47 BP 134/73 11/24/17 21:02 Pulse Ox 95 11/25/17 08:47 Intake & Output 11/24/17 11/25/17 11/25/17 18:59 06:59 18:59 Intake Total 900 240 Balance 900 240 Intake: Oral 900 240 Other: # Voids 3 2 Active Medications: Current Medications Acetaminophen (Tylenol) 650 mg PO Q4HR PRN PRN Reason: TEMP >100F Stop: 01/20/18 22:37 Acetaminophen (Tylenol Extra Strength) 500 mg PO Q12HR PRN PRN Reason: Pain (Mild) Stop: 01/20/18 22:37 Last Admin: 11/23/17 04:58 Dose: 500 mg Acetaminophen/Codeine Phosphate (Tylenol W/Codeine #3) 1 tab PO Q6H PRN PRN Reason: Pain (Moderate) Stop: 01/20/18 22:53 Last Admin: 11/24/17 11:13 Dose: 1 tab Albuterol Sulfate (Albuterol 2.5mg/3ml Neb Ud) 2.5 mg HHN Q4HR PRN PRN Reason: Shortness of Breath or Wheeze Stop: 01/20/18 22:37 Artificial Tears (Artificial Tears Ophth Soln) 1 drop EACH EYE QID [facility] Stop: 01/21/18 08:59 Last Admin: 11/24/17 21:10 Dose: 1 drop Artificial Tears (Artificial Tears Ophth Soln) 1 drop EACH EYE DAILY PRN PRN Reason: Dry Eye Stop: 01/20/18 22:54 Aspirin (Aspirin Chewable) 81 mg PO DAILY [facility] Stop: 01/21/18 08:59 Last Admin: 11/24/17 11:06 Dose: 81 mg Bisacodyl (Dulcolax 10 Mg Supp) 10 mg RC DAILY PRN PRN Reason: Constipation Stop: 01/20/18 22:37 Buspirone HCl (Buspar) 15 mg PO TID [facility] Stop: 01/21/18 08:59 Last Admin: 11/24/17 21:09 Dose: 15 mg Docusate Sodium (Colace) 100 mg PO BID [facility] Stop: 01/21/18 08:59 Last Admin: 11/24/17 18:33 Dose: Not Given Duloxetine HCl (Cymbalta) 30 mg PO DAILY [facility] Stop: 01/21/18 08:59 Last Admin: 11/24/17 11:13 Dose: Not Given Famotidine (Pepcid) 40 mg PO DAILY [facility] Stop: 01/21/18 08:59 Last Admin: 11/24/17 11:05 Dose: 40 mg Guaifenesin (Robitussin) 100 mg PO Q4HR PRN PRN Reason: Cough Stop: 01/20/18 22:37 Latanoprost (Xalatan 0.005% Ophth Soln) 1 drop EACH EYE HS [facility] Stop: 01/21/18 20:59 Last Admin: 11/24/17 21:09 Dose: 1 drop Lidocaine (Lidoderm 5% Patch) 1 patch TD DAILY [facility] Stop: 01/21/18 08:59 Last Admin: 11/24/17 11:12 Dose: Not Given Magnesium Hydroxide (Milk Of Magnesia) 30 ml PO DAILY PRN PRN Reason: Constipation Stop: 01/20/18 22:37 Memantine (Namenda) 5 mg PO DAILY [facility] Stop: 01/22/18 08:59 Last Admin: 11/24/17 11:05 Dose: 5 mg Metoprolol Tartrate (Lopressor) 25 mg PO BID [facility] Stop: 01/21/18 08:59 Last Admin: 11/24/17 18:33 Dose: Not Given Potassium Chloride (Klor-Con) 10 meq PO DAILY [facility] Stop: 01/21/18 08:59 Last Admin: 11/24/17 11:05 Dose: 10 meq Senna (Senna) 17.2 mg PO DAILY [facility] Stop: 01/21/18 08:59 Last Admin: 11/24/17 11:05 Dose: 17.2 mg Simvastatin (Zocor) 10 mg PO HS [facility] Stop: 01/21/18 20:59 Last Admin: 11/24/17 21:10 Dose: 10 mg Sodium Phosphate (Fleet Enema) 135 ml RC DAILY PRN PRN Reason: Constipation Stop: 01/20/18 22:37 General: Alert, Other (Confused) HEENT: Atraumatic, PERRLA Neck: Supple Cardiovascular: Regular rate Lungs: Clear to auscultation Abdomen: Bowel sounds, Soft Extremities: Other (No edema) Neurological: Other (Non ambulatory) Skin: Other (Warm and dry) Psych/Mental Status: Other (Confused) Assessment/Plan - Assessment Assessment: patient is awake, alert, confused, agitated at moment. Dx: Increased in agitation, Psychosis, Dementia, HTN, CAD, COPD Dyslipemia. - Plan Plan: Patient is follow by Psychiatry, she is continue with SNF meds. Will continue to monitor.
[2017-11-25] MEDS: Lidocaine 5% Patch TD SCH (09:04)
[2017-11-25] MEDS: Polyvinyl Alcohol Ophth Soln 15 mL Bottle EACH EYE SCH ×4 (09:04→21:18)
[2017-11-25 09:57] LABS: CHOLESTEROL 148 mg/dL (<200); HDL -HIGH DENSITY LIPOPROTEIN 44 mg/dL (23-92); TRIGLYCERIDES 106 mg/dL (<150)
[2017-11-25] MEDS: Acetaminophen 500 MG TAB PO PRN (17:05)
--- NOTE | 2017-11-25 17:48 | Progress Notes ---
DATE: 11/25/2017 An 87-year-old female, seems somewhat calmer, still remains highly impulsive, unpredictable, isolating, mostly poorly oriented. States that she has lost her pants, ruminative about losing her pants and states that she believes she is at [place] fire station. I did reach out to the daughter yesterday, left a voice message; I will try to get back to her today. MEDICATIONS: Noted. No overt side effects. ASSESSMENT: The patient is still unruly and impulsive, very confused, but somewhat calmer. She does seem to be improving to some extent. PLAN: We will continue to monitor. I will try to reach out to daughter today. JOB# [id number]
[2017-11-26] MEDS: Potassium Chloride 10 mEq ER Tab PO SCH (10:00)
[2017-11-26] MEDS: Lidocaine 5% Patch TD SCH (10:00)
[2017-11-26] MEDS: Multivitamin w/ Minerals Tab PO SCH (10:00)
[2017-11-26] MEDS: Aspirin 81mg Chewable Tab PO SCH (10:00)
[2017-11-26] MEDS: Polyvinyl Alcohol Ophth Soln 15 mL Bottle EACH EYE SCH ×4 (10:00→21:00)
--- NOTE | 2017-11-26 10:24 | General Progress Note ---
Subjective - Review of Systems Service Date: 11/26/17 Subjective: Incoherent Objective - Results Result Diagrams: 11/18/17 22:11/18/17 22: Recent Labs: Laboratory Last Values WBC 11.4 Th/cmm (4.8-10.8) H 11/18/17 22: RBC 3.86 Mil/cmm (3.80-5.20) 11/18/17 22: Hgb 12.4 gm/dL (12-16) 11/18/17: Hct 36.3 % (41.0-60) L 11/18/17: MCV 94.2 fl (81-100) 11/18/17: MCH 32.1 pg (27.0-31.0) H 11/18/17: MCHC Differential 34.0 pg (28.0-36.0) 11/18/17: RDW 13.1 % (11.5-20.0) 11/18/17: Plt Count 377 Th/cmm (150-400) 11/18/17 22: MPV 6.7 fl 11/18/17: Neutrophils % 67.5 % (40.0-80.0) 11/18/17: Lymphocytes % 16.6 % (20.0-50.0) L 11/18/17: Monocytes % 10.6 % (2.0-10.0) H 11/18/17: Eosinophils % 3.7 % (0.0-5.0) 11/18/17: Basophils % 1.6 % (0.0-2.0) 11/18/17: Sodium 136 mEq/L (136-145) 11/18/17: Potassium 4.1 mEq/L (3.5-5.1) 11/18/17: Chloride 104 mEq/L (98-107) 11/18/17: Carbon Dioxide 23.4 mEq/L (21.0-31.0) 11/18/17: Anion Gap 12.7 (7.0-16.0) 11/18/17: BUN 15 mg/dL (7-25) 11/18/17: Creatinine 0.7 mg/dL (0.6-1.2) 11/18/17 22: Est GFR ( Amer) TNP 11/18/17 22: Est GFR (Non-Af Amer) TNP 11/18/17 22: BUN/Creatinine Ratio 21.4 11/18/17 22: Glucose 108 mg/dL (70-105) H 11/18/17: Calcium 10.0 mg/dL (8.6-10.3) 11/18/17: Total Bilirubin 0.7 mg/dL (0.3-1.0) 11/18/17: AST 18 U/L (13-39) 11/18/17: ALT 12 U/L (7-52) 11/18/17: Alkaline Phosphatase 60 U/L (34-104) 11/18/17: Troponin I < 0.01 ng/mL (0.01-0.05) L 11/18/17: Total Protein 6.4 gm/dL (6.0-8.3) 11/18/17: Albumin 3.8 gm/dL (3.7-5.3) 11/18/17: Globulin 2.6 gm/dL 11/18/17: Albumin/Globulin Ratio 1.5 (1.0-1.8) 11/18/17 22: Triglycerides 106 mg/dL (<150) 11/25/17 09:20 Cholesterol 148 mg/dL (<200) 11/25/17 09:20 LDL Cholesterol Direct 93 mg/dL (75-193) 11/25/17 09:20 HDL Cholesterol 44 mg/dL (23-92) 11/25/17 09:20 TSH 2.17 uIU/ml (0.34-5.60) 11/18/17 22: Urine Source CLEAN C 11/20/17 15:00 Urine Color YELLOW 11/20/17 15:00 Urine Clarity CLEAR (CLEAR) 11/20/17 15:00 Urine pH 6.5 (4.6 - 8.0) 11/20/17 15:00 Ur Specific [place] 1.020 (1.005-1.030) 11/20/17 15:00 Urine Protein NEGATIVE mg/dL (NEGATIVE) 11/20/17 15:00 Urine Glucose (UA) NEGATIVE mg/dL (NEGATIVE) 11/20/17 15:00 Urine Ketones 15 mg/dL (NEGATIVE) H 11/20/17 15:00 Urine Blood NEGATIVE (NEGATIVE) 11/20/17 15:00 Urine Nitrate NEGATIVE (NEGATIVE) 11/20/17 15:00 Urine Bilirubin SMALL (NEGATIVE) H 11/20/17 15:00 Urine Urobilinogen 0.2 E.U./dL (0.2 - 1.0) 11/20/17 15:00 Ur Leukocyte Esterase TRACE (NEGATIVE) H 11/20/17 15:00 Urine RBC 0-2 /hpf (0-5) 11/20/17 15:00 Urine WBC 2-5 /hpf (0-5) 11/20/17 15:00 Ur Epithelial Cells FEW /lpf (FEW) 11/20/17 15:00 Urine Bacteria NONE SEEN /hpf (NONE SEEN) 11/20/17 15:00 - Physical Exam Vitals and I&O: Vital Signs Temp 98.7 F 11/26/17 09:24 Pulse 73 11/26/17 09:24 Resp 19 11/26/17 09:24 BP 147/61 11/26/17 09:24 Pulse Ox 98 11/26/17 09:24 Intake & Output 11/25/17 11/26/17 11/26/17 18:59 06:59 18:59 Intake Total 900 200 Balance 900 200 Intake: Oral 900 200 Other: # Voids 3 2 # Bowel Movements 0 Active Medications: Current Medications Acetaminophen (Tylenol) 650 mg PO Q4HR PRN PRN Reason: TEMP >100F Stop: 01/20/18 22:37 Acetaminophen (Tylenol Extra Strength) 500 mg PO Q12HR PRN PRN Reason: Pain (Mild) Stop: 01/20/18 22:37 Last Admin: 11/25/17 17:05 Dose: 500 mg Acetaminophen/Codeine Phosphate (Tylenol W/Codeine #3) 1 tab PO Q6H PRN PRN Reason: Pain (Moderate) Stop: 01/20/18 22:53 Last Admin: 11/24/17 11:13 Dose: 1 tab Albuterol Sulfate (Albuterol 2.5mg/3ml Neb Ud) 2.5 mg HHN Q4HR PRN PRN Reason: Shortness of Breath or Wheeze Stop: 01/20/18 22:37 Artificial Tears (Artificial Tears Ophth Soln) 1 drop EACH EYE QID [facility] Stop: 01/21/18 08:59 Last Admin: 11/25/17 21:18 Dose: 1 drop Artificial Tears (Artificial Tears Ophth Soln) 1 drop EACH EYE DAILY PRN PRN Reason: Dry Eye Stop: 01/20/18 22:54 Aspirin (Aspirin Chewable) 81 mg PO DAILY [facility] Stop: 01/21/18 08:59 Last Admin: 11/25/17 08:49 Dose: 81 mg Bisacodyl (Dulcolax 10 Mg Supp) 10 mg RC DAILY PRN PRN Reason: Constipation Stop: 01/20/18 22:37 Buspirone HCl (Buspar) 15 mg PO TID [facility] Stop: 01/21/18 08:59 Last Admin: 11/25/17 21:17 Dose: 15 mg Docusate Sodium (Colace) 100 mg PO BID [facility] Stop: 01/21/18 08:59 Last Admin: 11/25/17 17:04 Dose: 100 mg Duloxetine HCl (Cymbalta) 30 mg PO DAILY [facility] Stop: 01/21/18 08:59 Last Admin: 11/25/17 08:48 Dose: 30 mg Famotidine (Pepcid) 40 mg PO DAILY [facility] Stop: 01/21/18 08:59 Last Admin: 11/25/17 08:45 Dose: 40 mg Guaifenesin (Robitussin) 100 mg PO Q4HR PRN PRN Reason: Cough Stop: 01/20/18 22:37 Latanoprost (Xalatan 0.005% Ophth Soln) 1 drop EACH EYE HS [facility] Stop: 01/21/18 20:59 Last Admin: 11/25/17 21:17 Dose: 1 drop Lidocaine (Lidoderm 5% Patch) 1 patch TD DAILY [facility] Stop: 01/21/18 08:59 Last Admin: 11/25/17 09:04 Dose: 1 patch Magnesium Hydroxide (Milk Of Magnesia) 30 ml PO DAILY PRN PRN Reason: Constipation Stop: 01/20/18 22:37 Memantine (Namenda) 5 mg PO DAILY [facility] Stop: 01/22/18 08:59 Last Admin: 11/25/17 08:49 Dose: 5 mg Metoprolol Tartrate (Lopressor) 25 mg PO BID [facility] Stop: 01/21/18 08:59 Last Admin: 11/25/17 17:06 Dose: Not Given Potassium Chloride (Klor-Con) 10 meq PO DAILY [facility] Stop: 01/21/18 08:59 Last Admin: 11/25/17 08:50 Dose: 10 meq Senna (Senna) 17.2 mg PO DAILY [facility] Stop: 01/21/18 08:59 Last Admin: 11/25/17 08:45 Dose: 17.2 mg Simvastatin (Zocor) 10 mg PO HS [facility] Stop: 01/21/18 20:59 Last Admin: 11/25/17 21:18 Dose: 10 mg Sodium Phosphate (Fleet Enema) 135 ml RC DAILY PRN PRN Reason: Constipation Stop: 01/20/18 22:37 General: Alert, Other (Confused) HEENT: Atraumatic, PERRLA Neck: Supple Cardiovascular: Regular rate Lungs: Clear to auscultation Abdomen: Bowel sounds, Soft Extremities: Other (No edema) Neurological: Other (Non ambulatory) Skin: Other (Warm and dry) Psych/Mental Status: Other (Confused) Assessment/Plan - Assessment Assessment: patient is awake, alert, confused, agitated at moment. Dx: Increased in agitation, Psychosis, Dementia, HTN, CAD, COPD Dyslipemia. - Plan Plan: Patient is follow by Psychiatry, she is continue with SNF meds. Will continue to monitor. Nutritional Asmnt/Malnutr-PDOC - Dietary Evaluation Malnutrition Findings (Please click <Entered> for more info): Nutritional Asmnt/Malnutrition Start: 11/25/17 14: 08 Text: Status: Complete Freq: Document 11/25/17 14:08 [facility] (Rec: 11/25/17 14:21 [id number]) Nutritional Asmnt/Malnutrition Patient General Information Nutritional Screening Moderate Risk Diagnosis agitation Pertinent Medical Hx/Surgical Hx CAD, HTN, COPD, dementia, weakness, psychosis, dislipidemia, dislocation of left hip repair Subjective Information Pt seen lying in bed, awake and confused, and possible hard of hearing. Pt stated she did not like the lunch, which was fish today. Per EMR PO intake 75-100%. Current Diet Order/ Nutrition Support [facility] soft chopped Pertinent Medications colace, kcl, senna Pertinent Labs 11/18 glucose 108 Nutritional Hx/Data Height 1.68 m Height (Calculated Centimeters) 167.6 Current Weight (lbs) 65.771 kg Weight (Calculated Kilograms) 65.8 Weight (Calculated Grams) 42499.9 [place] Body Weight 130 Body Mass Index (BMI) 23.3 Weight Status Approriate GI Symptoms GI Symptoms None Last BM 11/22 Difficult in: None Skin Integrity/Comment: bruises Current %PO Good (75-100%) Estimated Nutritional Goals BEE in Kcals: Using Current wt Calories/Kcals/Kg 25-30 Kcals Calculated 8568-3905 Protein: Using Current wt Protein g/k Protein Calculated 66 Fluid: ml 1650-1980ml (1ml/kcal) Nutritional Problem No current Nutrition Prob Problem N/A Malnutrition Alert Muscle Mass (Non-Severe) Mild Depletion Protein-Calorie Malnutrition N/A Is there a minimum of two criteria No selected? Query Text:Check all the applicable criteria. A minimum of two criteria are recommended for diagnosis of either severe or non-severe malnutrition. Intervention/Recommendation Comments 1. Continue with current diet as ordered. 2. Monitor PO intake, wt, labs and skin integrity 3. F/U as low risk in 7 days, 12/02, PO check 11/29 Expected Outcomes/Goals Expected Outcomes/Goals 1. PO intake to meet at least 75% of nutritional needs. 2. Wt stability, skin to remain intact, labs to approach WNL.
--- NOTE | 2017-11-26 21:05 | Progress Notes ---
DATE: 11/26/2017 SUBJECTIVE: The patient currently in the hospital highly impulsive, unpredictable, confused, disoriented. States she believes that she is at a fire station very confused still, but significantly calmer and more cooperative. I did speak with daughter yesterday. Daughter would like her discharged as soon as a safe discharge plan was confirmed. The patient is calm and cooperative. She is pretty isolative and reclusive. Medications were noted. ASSESSMENT: The patient remains impulsive, still confused, but significantly calmer, improvement noted. PLAN: We will continue to monitor. Encourage increased socialization. No hitting behaviors noted. JOB# [id number]
[2017-11-27] MEDS: Potassium Chloride 10 mEq ER Tab PO SCH (09:26)
[2017-11-27] MEDS: Aspirin 81mg Chewable Tab PO SCH (09:26)
[2017-11-27] MEDS: Multivitamin w/ Minerals Tab PO SCH (09:26)
[2017-11-27] MEDS: Polyvinyl Alcohol Ophth Soln 15 mL Bottle EACH EYE SCH ×4 (09:27→21:23)
[2017-11-27] MEDS: Lidocaine 5% Patch TD SCH (09:29)
--- NOTE | 2017-11-27 10:03 | General Progress Note ---
Subjective - Review of Systems Service Date: 11/27/17 Subjective: Incoherent Objective - Results Result Diagrams: 11/18/17 22:11/18/17 22: Recent Labs: Laboratory Last Values WBC 11.4 Th/cmm (4.8-10.8) H 11/18/17 22: RBC 3.86 Mil/cmm (3.80-5.20) 11/18/17 22: Hgb 12.4 gm/dL (12-16) 11/18/17: Hct 36.3 % (41.0-60) L 11/18/17: MCV 94.2 fl (81-100) 11/18/17: MCH 32.1 pg (27.0-31.0) H 11/18/17: MCHC Differential 34.0 pg (28.0-36.0) 11/18/17: RDW 13.1 % (11.5-20.0) 11/18/17: Plt Count 377 Th/cmm (150-400) 11/18/17 22: MPV 6.7 fl 11/18/17: Neutrophils % 67.5 % (40.0-80.0) 11/18/17: Lymphocytes % 16.6 % (20.0-50.0) L 11/18/17: Monocytes % 10.6 % (2.0-10.0) H 11/18/17: Eosinophils % 3.7 % (0.0-5.0) 11/18/17: Basophils % 1.6 % (0.0-2.0) 11/18/17: Sodium 136 mEq/L (136-145) 11/18/17: Potassium 4.1 mEq/L (3.5-5.1) 11/18/17: Chloride 104 mEq/L (98-107) 11/18/17: Carbon Dioxide 23.4 mEq/L (21.0-31.0) 11/18/17: Anion Gap 12.7 (7.0-16.0) 11/18/17: BUN 15 mg/dL (7-25) 11/18/17: Creatinine 0.7 mg/dL (0.6-1.2) 11/18/17 22: Est GFR ( Amer) TNP 11/18/17 22: Est GFR (Non-Af Amer) TNP 11/18/17 22: BUN/Creatinine Ratio 21.4 11/18/17 22: Glucose 108 mg/dL (70-105) H 11/18/17: Calcium 10.0 mg/dL (8.6-10.3) 11/18/17: Total Bilirubin 0.7 mg/dL (0.3-1.0) 11/18/17: AST 18 U/L (13-39) 11/18/17: ALT 12 U/L (7-52) 11/18/17: Alkaline Phosphatase 60 U/L (34-104) 11/18/17: Troponin I < 0.01 ng/mL (0.01-0.05) L 11/18/17: Total Protein 6.4 gm/dL (6.0-8.3) 11/18/17: Albumin 3.8 gm/dL (3.7-5.3) 11/18/17: Globulin 2.6 gm/dL 11/18/17: Albumin/Globulin Ratio 1.5 (1.0-1.8) 11/18/17 22: Triglycerides 106 mg/dL (<150) 11/25/17 09:20 Cholesterol 148 mg/dL (<200) 11/25/17 09:20 LDL Cholesterol Direct 93 mg/dL (75-193) 11/25/17 09:20 HDL Cholesterol 44 mg/dL (23-92) 11/25/17 09:20 TSH 2.17 uIU/ml (0.34-5.60) 11/18/17 22: Urine Source CLEAN C 11/20/17 15:00 Urine Color YELLOW 11/20/17 15:00 Urine Clarity CLEAR (CLEAR) 11/20/17 15:00 Urine pH 6.5 (4.6 - 8.0) 11/20/17 15:00 Ur Specific [place] 1.020 (1.005-1.030) 11/20/17 15:00 Urine Protein NEGATIVE mg/dL (NEGATIVE) 11/20/17 15:00 Urine Glucose (UA) NEGATIVE mg/dL (NEGATIVE) 11/20/17 15:00 Urine Ketones 15 mg/dL (NEGATIVE) H 11/20/17 15:00 Urine Blood NEGATIVE (NEGATIVE) 11/20/17 15:00 Urine Nitrate NEGATIVE (NEGATIVE) 11/20/17 15:00 Urine Bilirubin SMALL (NEGATIVE) H 11/20/17 15:00 Urine Urobilinogen 0.2 E.U./dL (0.2 - 1.0) 11/20/17 15:00 Ur Leukocyte Esterase TRACE (NEGATIVE) H 11/20/17 15:00 Urine RBC 0-2 /hpf (0-5) 11/20/17 15:00 Urine WBC 2-5 /hpf (0-5) 11/20/17 15:00 Ur Epithelial Cells FEW /lpf (FEW) 11/20/17 15:00 Urine Bacteria NONE SEEN /hpf (NONE SEEN) 11/20/17 15:00 - Physical Exam Vitals and I&O: Vital Signs Temp 97.2 F 11/26/17 14:30 Pulse 71 11/26/17 19:15 Resp 18 11/26/17 20:00 BP 126/75 11/26/17 17:53 Pulse Ox 95 11/26/17 19:15 Intake & Output 11/26/17 11/27/17 11/27/17 18:59 06:59 18:59 Intake Total 1400 240 Balance 1400 240 Intake: Oral 1400 240 Other: # Voids 3 1 # Bowel Movements 2 Active Medications: Current Medications Acetaminophen (Tylenol) 650 mg PO Q4HR PRN PRN Reason: TEMP >100F Stop: 01/20/18 22:37 Last Admin: 11/26/17 18:10 Dose: 650 mg Acetaminophen (Tylenol Extra Strength) 500 mg PO Q12HR PRN PRN Reason: Pain (Mild) Stop: 01/20/18 22:37 Last Admin: 11/25/17 17:05 Dose: 500 mg Acetaminophen/Codeine Phosphate (Tylenol W/Codeine #3) 1 tab PO Q6H PRN PRN Reason: Pain (Moderate) Stop: 01/20/18 22:53 Last Admin: 11/24/17 11:13 Dose: 1 tab Albuterol Sulfate (Albuterol 2.5mg/3ml Neb Ud) 2.5 mg HHN Q4HR PRN PRN Reason: Shortness of Breath or Wheeze Stop: 01/20/18 22:37 Artificial Tears (Artificial Tears Ophth Soln) 1 drop EACH EYE QID RADHA Stop: 01/21/18 08:59 Last Admin: 11/27/17 09:27 Dose: 1 drop Artificial Tears (Artificial Tears Ophth Soln) 1 drop EACH EYE DAILY PRN PRN Reason: Dry Eye Stop: 01/20/18 22:54 Aspirin (Aspirin Chewable) 81 mg PO DAILY RADHA Stop: 01/21/18 08:59 Last Admin: 11/27/17 09:26 Dose: 81 mg Bisacodyl (Dulcolax 10 Mg Supp) 10 mg RC DAILY PRN PRN Reason: Constipation Stop: 01/20/18 22:37 Buspirone HCl (Buspar) 15 mg PO TID RADHA Stop: 01/21/18 08:59 Last Admin: 11/27/17 09:26 Dose: 15 mg Docusate Sodium (Colace) 100 mg PO BID [facility] Stop: 01/21/18 08:59 Last Admin: 11/27/17 09:26 Dose: Not Given Duloxetine HCl (Cymbalta) 30 mg PO DAILY RADHA Stop: 01/21/18 08:59 Last Admin: 11/27/17 09:26 Dose: 30 mg Famotidine (Pepcid) 40 mg PO DAILY [facility] Stop: 01/21/18 08:59 Last Admin: 11/27/17 09:26 Dose: 40 mg Guaifenesin (Robitussin) 100 mg PO Q4HR PRN PRN Reason: Cough Stop: 01/20/18 22:37 Latanoprost (Xalatan 0.005% Ophth Soln) 1 drop EACH EYE HS [facility] Stop: 01/21/18 20:59 Last Admin: 11/26/17 21:00 Dose: 1 drop Lidocaine (Lidoderm 5% Patch) 1 patch TD DAILY RADHA Stop: 01/21/18 08:59 Last Admin: 11/26/17 10:00 Dose: 1 patch Magnesium Hydroxide (Milk Of Magnesia) 30 ml PO DAILY PRN PRN Reason: Constipation Stop: 01/20/18 22:37 Memantine (Namenda) 5 mg PO DAILY [facility] Stop: 01/22/18 08:59 Last Admin: 11/27/17 09:26 Dose: 5 mg Metoprolol Tartrate (Lopressor) 25 mg PO BID [facility] Stop: 01/21/18 08:59 Last Admin: 11/27/17 09:27 Dose: Not Given Potassium Chloride (Klor-Con) 10 meq PO DAILY [facility] Stop: 01/21/18 08:59 Last Admin: 11/27/17 09:26 Dose: 10 meq Senna (Senna) 17.2 mg PO DAILY [facility] Stop: 01/21/18 08:59 Last Admin: 11/27/17 09:27 Dose: Not Given Simvastatin (Zocor) 10 mg PO HS [facility] Stop: 01/21/18 20:59 Last Admin: 11/26/17 21:00 Dose: 10 mg Sodium Phosphate (Fleet Enema) 135 ml RC DAILY PRN PRN Reason: Constipation Stop: 01/20/18 22:37 General: Alert, Other (Confused) HEENT: Atraumatic, PERRLA Neck: Supple Cardiovascular: Regular rate Lungs: Clear to auscultation Abdomen: Bowel sounds, Soft Extremities: Other (No edema) Neurological: Other (Non ambulatory) Skin: Other (Warm and dry) Psych/Mental Status: Other (Confused) Assessment/Plan - Assessment Assessment: patient is awake, alert, confused, agitated at moment. Dx: Increased in agitation, Psychosis, Dementia, HTN, CAD, COPD Dyslipemia. - Plan Plan: Patient is follow by Psychiatry, she is continue with SNF meds. Will continue to monitor. Nutritional Asmnt/Malnutr-PDOC - Dietary Evaluation Malnutrition Findings (Please click <Entered> for more info): Nutritional Asmnt/Malnutrition Start: 11/25/17 14: 08 Text: Status: Complete Freq: Document 11/25/17 14:08 LCHENG (Rec: 11/25/17 14:21 REYNAG [id number]) Nutritional Asmnt/Malnutrition Patient General Information Nutritional Screening Moderate Risk Diagnosis agitation Pertinent Medical Hx/Surgical Hx CAD, HTN, COPD, dementia, weakness, psychosis, dislipidemia, dislocation of left hip repair Subjective Information Pt seen lying in bed, awake and confused, and possible hard of hearing. Pt stated she did not like the lunch, which was fish today. Per EMR PO intake 75-100%. Current Diet Order/ Nutrition Support [facility] soft chopped Pertinent Medications colace, kcl, senna Pertinent Labs 11/18 glucose 108 Nutritional Hx/Data Height 1.68 m Height (Calculated Centimeters) 167.6 Current Weight (lbs) 65.771 kg Weight (Calculated Kilograms) 65.8 Weight (Calculated Grams) 16695.9 [place] Body Weight 130 Body Mass Index (BMI) 23.3 Weight Status Approriate GI Symptoms GI Symptoms None Last BM 11/22 Difficult in: None Skin Integrity/Comment: bruises Current %PO Good (75-100%) Estimated Nutritional Goals BEE in Kcals: Using Current wt Calories/Kcals/Kg 25-30 Kcals Calculated 6109-0978 Protein: Using Current wt Protein g/k Protein Calculated 66 Fluid: ml 1650-1980ml (1ml/kcal) Nutritional Problem No current Nutrition Prob Problem N/A Malnutrition Alert Muscle Mass (Non-Severe) Mild Depletion Protein-Calorie Malnutrition N/A Is there a minimum of two criteria No selected? Query Text:Check all the applicable criteria. A minimum of two criteria are recommended for diagnosis of either severe or non-severe malnutrition. Intervention/Recommendation Comments 1. Continue with current diet as ordered. 2. Monitor PO intake, wt, labs and skin integrity 3. F/U as low risk in 7 days, 12/02, PO check 11/29 Expected Outcomes/Goals Expected Outcomes/Goals 1. PO intake to meet at least 75% of nutritional needs. 2. Wt stability, skin to remain intact, labs to approach WNL.
[2017-11-27 13:16] LABS: % BASOPHILS 1.5 % (0.0-2.0); % EOSINOPHILS 2.5 % (0.0-5.0); % LYMPHOCYTES 21.5 % (20.0-50.0); % MONOCYTES 7.4 % (2.0-10.0); % NEUTROPHILS 67.1 % (40.0-80.0); BASOPHILE ABSOLUTE 0.1 Th/cumm (0-0.2); EOSINOPHILE ABSOLUTE 0.2 Th/cmm (0.1-0.4); HEMATOCRIT 39.5 % (41.0-60); HEMOGLOBIN 13.3 gm/dL (12-16); LYMPHOCYTE ABSOLUTE 1.9 Th/cmm (1.5-3.0); MEAN CELL VOLUME 92.8 fl (81-100); MEAN CORPUSCULAR HEMOGLOBIN 31.3 pg (27.0-31.0); MEAN CORPUSCULAR HGB CONC 33.7 pg (28.0-36.0); MEAN PLATELET VOLUME 6.8 fl; MONOCYTE ABSOLUTE 0.7 Th/cmm (0.3-1.0); NEUTROPHILE ABSOLUTE 5.9 Th/cmm (1.8-8.0); PLATELET COUNT 402 Th/cmm (150-400); RED BLOOD COUNT 4.26 Mil/cmm (3.80-5.20); RED CELL DISTRIBUTION WIDTH 12.9 % (11.5-20.0); WHITE BLOOD COUNT 8.8 Th/cmm (4.8-10.8)
[2017-11-27 13:37] LABS: ALB/GLOB RATIO 1.8 (1.0-1.8); ALBUMIN 4.1 gm/dL (3.7-5.3); ALKALINE PHOSPHATASE 65 U/L (34-104); ANION GAP 12.5 (7.0-16.0); BILIRUBIN,TOTAL 0.8 mg/dL (0.3-1.0); BUN - UREA NITROGEN 18 mg/dL (7-25); CALCIUM SERUM 9.5 mg/dL (8.6-10.3); CARBON DIOXIDE 22.3 mEq/L (21.0-31.0); CHLORIDE 102 mEq/L (98-107); CREATININE - SERUM 0.8 mg/dL (0.6-1.2); GLUCOSE 145 mg/dL (70-105); POTASSIUM SERUM 3.8 mEq/L (3.5-5.1); SGOT 19 U/L (13-39); SGPT/ALT 11 U/L (7-52); SODIUM SERUM 133 mEq/L (136-145); TOTAL PROTEIN,SERUM 6.4 gm/dL (6.0-8.3)
--- NOTE | 2017-11-27 16:10 | Progress Notes ---
DATE: 11/27/2017 SUBJECTIVE: The patient remains in the hospital, still confused, disoriented, does not know where she is, likely, however, approaching her baseline. She is not agitated, not combative. She is somewhat calmer. She remains isolative. Medications were noted. The patient is sleeping well at night time. Eating with some prompting. ASSESSMENT: The patient remains somewhat impulsive, still confused, but seems calmer per the daughter, she is at her baseline. PLAN: We will continue to monitor for further 24 hours. We will err on the side of caution. Placement has been confirmed. We will coordinate care with social work regarding safe discharge plan and good psychiatric followup. [facility]# [id number]
[2017-11-27] MEDS: APAP/Codeine 300 mg/30 mg Tab PO PRN (19:07)
[2017-11-28] MEDS: Potassium Chloride 10 mEq ER Tab PO SCH (09:18)
[2017-11-28] MEDS: Multivitamin w/ Minerals Tab PO SCH (09:18)
[2017-11-28] MEDS: Aspirin 81mg Chewable Tab PO SCH (09:18)
[2017-11-28] MEDS: Lidocaine 5% Patch TD SCH (09:19)
[2017-11-28] MEDS: Polyvinyl Alcohol Ophth Soln 15 mL Bottle EACH EYE SCH (09:19)
--- NOTE | 2017-11-28 09:28 | General Progress Note ---
Subjective - Review of Systems Service Date: 11/28/17 Subjective: Incoherent Objective - Results Result Diagrams: 11/27/17 13:07 11/27/17 13:07 Recent Labs: Laboratory Last Values WBC 8.8 Th/cmm (4.8-10.8) 11/27/17 13:07 RBC 4.26 Mil/cmm (3.80-5.20) 11/27/17 13:07 Hgb 13.3 gm/dL (12-16) 11/27/17 13:07 Hct 39.5 % (41.0-60) L 11/27/17 13:07 MCV 92.8 fl (81-100) 11/27/17 13:07 MCH 31.3 pg (27.0-31.0) H 11/27/17 13:07 MCHC Differential 33.7 pg (28.0-36.0) 11/27/17 13:07 RDW 12.9 % (11.5-20.0) 11/27/17 13:07 Plt Count 402 Th/cmm (150-400) H 11/27/17 13:07 MPV 6.8 fl 11/27/17 13:07 Neutrophils % 67.1 % (40.0-80.0) 11/27/17 13:07 Lymphocytes % 21.5 % (20.0-50.0) 11/27/17 13:07 Monocytes % 7.4 % (2.0-10.0) 11/27/17 13:07 Eosinophils % 2.5 % (0.0-5.0) 11/27/17 13:07 Basophils % 1.5 % (0.0-2.0) 11/27/17 13:07 Sodium 133 mEq/L (136-145) L 11/27/17 13:07 Potassium 3.8 mEq/L (3.5-5.1) 11/27/17 13:07 Chloride 102 mEq/L (98-107) 11/27/17 13:07 Carbon Dioxide 22.3 mEq/L (21.0-31.0) 11/27/17 13:07 Anion Gap 12.5 (7.0-16.0) 11/27/17 13:07 BUN 18 mg/dL (7-25) 11/27/17 13:07 Creatinine 0.8 mg/dL (0.6-1.2) 11/27/17 13:07 Est GFR ( Amer) TNP 11/27/17 13:07 Est GFR (Non-Af Amer) TNP 11/27/17 13:07 BUN/Creatinine Ratio 22.5 11/27/17 13:07 Glucose 145 mg/dL (70-105) H 11/27/17 13:07 Calcium 9.5 mg/dL (8.6-10.3) 11/27/17 13:07 Total Bilirubin 0.8 mg/dL (0.3-1.0) 11/27/17 13:07 AST 19 U/L (13-39) 11/27/17 13:07 ALT 11 U/L (7-52) 11/27/17 13:07 Alkaline Phosphatase 65 U/L (34-104) 11/27/17 13:07 Troponin I < 0.01 ng/mL (0.01-0.05) L 11/18/17 22:27 Total Protein 6.4 gm/dL (6.0-8.3) 11/27/17 13:07 Albumin 4.1 gm/dL (3.7-5.3) 11/27/17 13:07 Globulin 2.3 gm/dL 11/27/17 13:07 Albumin/Globulin Ratio 1.8 (1.0-1.8) 11/27/17 13:07 Triglycerides 106 mg/dL (<150) 11/25/17 09:20 Cholesterol 148 mg/dL (<200) 11/25/17 09:20 LDL Cholesterol Direct 93 mg/dL (75-193) 11/25/17 09:20 HDL Cholesterol 44 mg/dL (23-92) 11/25/17 09:20 TSH 2.17 uIU/ml (0.34-5.60) 11/18/17 22:27 Urine Source CLEAN C 11/20/17 15:00 Urine Color YELLOW 11/20/17 15:00 Urine Clarity CLEAR (CLEAR) 11/20/17 15:00 Urine pH 6.5 (4.6 - 8.0) 11/20/17 15:00 Ur Specific [place] 1.020 (1.005-1.030) 11/20/17 15:00 Urine Protein NEGATIVE mg/dL (NEGATIVE) 11/20/17 15:00 Urine Glucose (UA) NEGATIVE mg/dL (NEGATIVE) 11/20/17 15:00 Urine Ketones 15 mg/dL (NEGATIVE) H 11/20/17 15:00 Urine Blood NEGATIVE (NEGATIVE) 11/20/17 15:00 Urine Nitrate NEGATIVE (NEGATIVE) 11/20/17 15:00 Urine Bilirubin SMALL (NEGATIVE) H 11/20/17 15:00 Urine Urobilinogen 0.2 E.U./dL (0.2 - 1.0) 11/20/17 15:00 Ur Leukocyte Esterase TRACE (NEGATIVE) H 11/20/17 15:00 Urine RBC 0-2 /hpf (0-5) 11/20/17 15:00 Urine WBC 2-5 /hpf (0-5) 11/20/17 15:00 Ur Epithelial Cells FEW /lpf (FEW) 11/20/17 15:00 Urine Bacteria NONE SEEN /hpf (NONE SEEN) 11/20/17 15:00 - Physical Exam Vitals and I&O: Vital Signs Temp 97.8 F 11/27/17 20:31 Pulse 81 11/27/17 20:31 Resp 20 11/27/17 20:31 BP 120/72 11/27/17 20:31 Pulse Ox 95 11/27/17 20:31 Intake & Output 11/27/17 11/28/17 11/28/17 18:59 06:59 18:59 Intake Total 900 240 Balance 900 240 Intake: Oral 900 240 Other: # Voids 4 1 # Bowel Movements 1 Active Medications: Current Medications Acetaminophen (Tylenol) 650 mg PO Q4HR PRN PRN Reason: TEMP >100F Stop: 01/20/18 22:37 Last Admin: 11/27/17 13:24 Dose: 650 mg Acetaminophen (Tylenol Extra Strength) 500 mg PO Q12HR PRN PRN Reason: Pain (Mild) Stop: 01/20/18 22:37 Last Admin: 11/25/17 17:05 Dose: 500 mg Acetaminophen/Codeine Phosphate (Tylenol W/Codeine #3) 1 tab PO Q6H PRN PRN Reason: Pain (Moderate) Stop: 01/20/18 22:53 Last Admin: 11/27/17 19:07 Dose: 1 tab Albuterol Sulfate (Albuterol 2.5mg/3ml Neb Ud) 2.5 mg HHN Q4HR PRN PRN Reason: Shortness of Breath or Wheeze Stop: 01/20/18 22:37 Artificial Tears (Artificial Tears Ophth Soln) 1 drop EACH EYE QID RADHA Stop: 01/21/18 08:59 Last Admin: 11/28/17 09:19 Dose: 1 drop Artificial Tears (Artificial Tears Ophth Soln) 1 drop EACH EYE DAILY PRN PRN Reason: Dry Eye Stop: 01/20/18 22:54 Aspirin (Aspirin Chewable) 81 mg PO DAILY [facility] Stop: 01/21/18 08:59 Last Admin: 11/28/17 09:18 Dose: 81 mg Bisacodyl (Dulcolax 10 Mg Supp) 10 mg RC DAILY PRN PRN Reason: Constipation Stop: 01/20/18 22:37 Buspirone HCl (Buspar) 15 mg PO TID [facility] Stop: 01/21/18 08:59 Last Admin: 11/28/17 09:18 Dose: 15 mg Docusate Sodium (Colace) 100 mg PO BID [facility] Stop: 01/21/18 08:59 Last Admin: 11/28/17 09:19 Dose: Not Given Duloxetine HCl (Cymbalta) 30 mg PO DAILY [facility] Stop: 01/21/18 08:59 Last Admin: 11/28/17 09:18 Dose: 30 mg Famotidine (Pepcid) 40 mg PO DAILY [facility] Stop: 01/21/18 08:59 Last Admin: 11/28/17 09:18 Dose: 40 mg Guaifenesin (Robitussin) 100 mg PO Q4HR PRN PRN Reason: Cough Stop: 01/20/18 22:37 Latanoprost (Xalatan 0.005% Ophth Soln) 1 drop EACH EYE HS [facility] Stop: 01/21/18 20:59 Last Admin: 11/27/17 21:23 Dose: 1 drop Lidocaine (Lidoderm 5% Patch) 1 patch TD DAILY [facility] Stop: 01/21/18 08:59 Last Admin: 11/28/17 09:19 Dose: 1 patch Magnesium Hydroxide (Milk Of Magnesia) 30 ml PO DAILY PRN PRN Reason: Constipation Stop: 01/20/18 22:37 Memantine (Namenda) 5 mg PO DAILY [facility] Stop: 01/22/18 08:59 Last Admin: 11/28/17 09:18 Dose: 5 mg Metoprolol Tartrate (Lopressor) 25 mg PO BID [facility] Stop: 01/21/18 08:59 Last Admin: 11/28/17 09:18 Dose: Not Given Potassium Chloride (Klor-Con) 10 meq PO DAILY [facility] Stop: 01/21/18 08:59 Last Admin: 11/28/17 09:18 Dose: 10 meq Senna (Senna) 17.2 mg PO DAILY [facility] Stop: 01/21/18 08:59 Last Admin: 11/28/17 09:19 Dose: Not Given Simvastatin (Zocor) 10 mg PO HS [facility] Stop: 01/21/18 20:59 Last Admin: 11/27/17 21:22 Dose: 10 mg Sodium Phosphate (Fleet Enema) 135 ml RC DAILY PRN PRN Reason: Constipation Stop: 01/20/18 22:37 General: Alert, Other (Confused) HEENT: Atraumatic, PERRLA Neck: Supple Cardiovascular: Regular rate Lungs: Clear to auscultation Abdomen: Bowel sounds, Soft Extremities: Other (No edema) Neurological: Other (Non ambulatory) Skin: Other (Warm and dry) Psych/Mental Status: Other (Confused) Assessment/Plan - Assessment Assessment: patient is awake, alert, confused, agitated at moment. Dx: Increased in agitation, Psychosis, Dementia, HTN, CAD, COPD Dyslipemia. - Plan Plan: Patient is follow by Psychiatry, she is continue with SNF meds. Will continue to monitor. Nutritional Asmnt/Malnutr-PDOC - Dietary Evaluation Malnutrition Findings (Please click <Entered> for more info): Nutritional Asmnt/Malnutrition Start: 11/25/17 14: 08 Text: Status: Complete Freq: Document 11/25/17 14:08 LCHENG (Rec: 11/25/17 14:21 REYNA [email or web address]) Nutritional Asmnt/Malnutrition Patient General Information Nutritional Screening Moderate Risk Diagnosis agitation Pertinent Medical Hx/Surgical Hx CAD, HTN, COPD, dementia, weakness, psychosis, dislipidemia, dislocation of left hip repair Subjective Information Pt seen lying in bed, awake and confused, and possible hard of hearing. Pt stated she did not like the lunch, which was fish today. Per EMR PO intake 75-100%. Current Diet Order/ Nutrition Support [facility] soft chopped Pertinent Medications colace, kcl, senna Pertinent Labs 11/18 glucose 108 Nutritional Hx/Data Height 1.68 m Height (Calculated Centimeters) 167.6 Current Weight (lbs) 65.771 kg Weight (Calculated Kilograms) 65.8 Weight (Calculated Grams) 86419.9 [place] Body Weight 130 Body Mass Index (BMI) 23.3 Weight Status Approriate GI Symptoms GI Symptoms None Last BM 11/22 Difficult in: None Skin Integrity/Comment: bruises Current %PO Good (75-100%) Estimated Nutritional Goals BEE in Kcals: Using Current wt Calories/Kcals/Kg 25-30 Kcals Calculated 4270-0675 Protein: Using Current wt Protein g/k Protein Calculated 66 Fluid: ml 1650-1980ml (1ml/kcal) Nutritional Problem No current Nutrition Prob Problem N/A Malnutrition Alert Muscle Mass (Non-Severe) Mild Depletion Protein-Calorie Malnutrition N/A Is there a minimum of two criteria No selected? Query Text:Check all the applicable criteria. A minimum of two criteria are recommended for diagnosis of either severe or non-severe malnutrition. Intervention/Recommendation Comments 1. Continue with current diet as ordered. 2. Monitor PO intake, wt, labs and skin integrity 3. F/U as low risk in 7 days, 12/02, PO check 11/29 Expected Outcomes/Goals Expected Outcomes/Goals 1. PO intake to meet at least 75% of nutritional needs. 2. Wt stability, skin to remain intact, labs to approach WNL.
[2017-11-28] MEDS: APAP/Codeine 300 mg/30 mg Tab PO PRN (09:58)
--- NOTE | 2017-11-28 21:28 | Discharge Summary ---
DATE OF DISCHARGE: 11/28/2017 JUSTIFICATION FOR HOSPITALIZATION: Combative behaviors, hitting behaviors. HISTORY OF PRESENT ILLNESS: An 87-year-old female, cognitively impaired, demented knows her name only. She does not know where she is or what is going on. She does not know the day of the week or why she is in the hospital, was unruly, combative, somewhat aggressive [facility] the [facility]. PAST PSYCHIATRIC HISTORY: Demented. SOCIAL HISTORY: Had been at a penitentiary normally at [facility]. Daughter very involved. MEDICATIONS: Noted. MENTAL STATUS EXAMINATION: Stated age. Fair eye contact. Speech within normal limits. Fully oriented. Please see full psych eval for further details. PROVISIONAL DIAGNOSES: Dementia with behaviors; psychosis, unspecified; mood, unspecified; anxiety, unspecified. Under medical, please see full H and P. HOSPITAL COURSE: After initial assessment, the patient was initially started on medications to address her behavioral disturbances, Namenda, Aricept, for example also on Cymbalta for mood symptoms over the BuSpar for anxiety symptoms, over the course of the hospitalization, she seemed to settle down. She was more cooperative, still sometimes unruly but better impulse control toward the latter end of her hospitalization, she was somewhat isolative, but calmer. No agitation, no escalation of behaviors and she was discharged once placement was confirmed. CONDITION UPON DISCHARGE: Improved, allowing ADLs. Fair eye contact. Mood "okay." Affect flat, confused, disoriented. No SI, no HI, no psychosis. Better impulse control. PROVISIONAL DIAGNOSES: Dementia with behaviors; anxiety, unspecified; mood, unspecified. Under medical, please see full H and P. PROGNOSIS: The patient follows up with [facility] and remains treatment compliant. Prognosis will improve, otherwise guarded. JOB# [id number]
== END 2017-11-28 14:40 | DRG 885 ==
LOC: ER 21:50 → GERO2 11-21 16:31 → GERO 11-22 06:20
PROVIDERS: ADMIT Psychiatry & Neurology Psychiatry; ATTEND Psychiatry & Neurology Psychiatry
DX: F29 Unspecified psychosis not due to a substance or known physiological condition (principal); F03.91 Unspecified dementia, unspecified severity, with behavioral disturbance; J44.9 Chronic obstructive pulmonary disease, unspecified; F39 Unspecified mood [affective] disorder; F41.9 Anxiety disorder, unspecified; I10 Essential (primary) hypertension; I25.10 Atherosclerotic heart disease of native coronary artery without angina pectoris; E78.5 Hyperlipidemia, unspecified; M19.90 Unspecified osteoarthritis, unspecified site
CPT/HCPCS: 36415-UA; 71045-TC; 80053-TC; 80061-TC; 81001-TC; 84443-TC; 84484-TC; 85025-TC; 93005; 94760; 96374; 97530; J0696; J1200; J1630; J2060; J7030; X3904; Z7610